=== PATIENT | male | born 1975 | race Caucasian/White ===

== ENCOUNTER 2022-10-18 09:18 | Day surgery (SDC) | payer BC ==
[2022-10-17 14:48] VITALS: BMI 25.0
[2022-10-18] MEDS ORDERED: Oxymetazoline HCl 0.05% (30 ML BOT) ONE ×2 (09:57→11:19)
[2022-10-18] MEDS ORDERED: Midazolam HCl 2 mg/2 ml Vial ONE (11:04)
[2022-10-18] MEDS ORDERED: Lidocaine 1% (PF) 30 ML VIAL ONE (11:19)
[2022-10-18] MEDS ORDERED: EPINEPHrine 1 MG/ML AMP ONE (11:19)
[2022-10-18] MEDS ORDERED: Bacitracin Zinc Ointment 30 gm TUBE ONE (11:19)
[2022-10-18] MEDS ORDERED: Fentanyl 250 MCG/5 ML VIAL ONE (11:23)
[2022-10-18] MEDS ORDERED: Ketamine 50 MG/ML (10ML VIAL) ONE (11:27)
[2022-10-18] MEDS ORDERED: PROPOFOL 200 MG/20 ML VIAL ONE (11:33)
[2022-10-18] MEDS ORDERED: Dexamethasone 20 MG/5 ML VIAL ONE (11:33)
[2022-10-18] MEDS ORDERED: Rocuronium Bromide 10 MG/ML (10ML VIAL) ONE (11:33)
[2022-10-18] MEDS ORDERED: PHENYLEPHRINE-NS 100 MCG/ML 10 ML SYRINGE ONE (11:33)
[2022-10-18] MEDS ORDERED: Ondansetron PF 4 MG/2 ML Vial ONE (11:33)
[2022-10-18] MEDS ORDERED: methylPREDNISolone Acetate 40 mg/ml Vial ONE (11:40)
[2022-10-18] MEDS ORDERED: Fentanyl 100 MCG/2 ML VIAL ONE (12:54)
[2022-10-18] MEDS ORDERED: hydrALAZINE 20 MG/ML VIAL ONE (13:24)
[2022-10-18] MEDS ORDERED: Hydrocodone-Acetamin 15 ML UDCUP ONE (13:47)
== END 2022-10-18 14:30 | disposition home or self-care (01) ==
LOC: SDC 09:18
PROVIDERS: ATTEND Otolaryngology Plastic Surgery within the Head & Neck
PROC: 0CTQXZZ Resection of Adenoids, External Approach (ICD-10-PCS; principal; 2022-10-18)
PROC: 099R8ZZ Drainage of Left Maxillary Sinus, Via Natural or Artificial Opening Endoscopic (ICD-10-PCS; principal; 2022-10-18)
PROC: 099Q8ZZ Drainage of Right Maxillary Sinus, Via Natural or Artificial Opening Endoscopic (ICD-10-PCS; principal; 2022-10-18)
PROC: 099S8ZZ Drainage of Right Frontal Sinus, Via Natural or Artificial Opening Endoscopic (ICD-10-PCS; principal; 2022-10-18)
PROC: 09SM0ZZ Reposition Nasal Septum, Open Approach (ICD-10-PCS; principal; 2022-10-18)
PROC: 09TU8ZZ Resection of Right Ethmoid Sinus, Via Natural or Artificial Opening Endoscopic (ICD-10-PCS; principal; 2022-10-18)
PROC: 0CTPXZZ Resection of Tonsils, External Approach (ICD-10-PCS; principal; 2022-10-18)
PROC: 09TV8ZZ Resection of Left Ethmoid Sinus, Via Natural or Artificial Opening Endoscopic (ICD-10-PCS; principal; 2022-10-18)
PROC: 095L0ZZ Destruction of Nasal Turbinate, Open Approach (ICD-10-PCS; principal; 2022-10-18)
PROC: 0CTNXZZ Resection of Uvula, External Approach (ICD-10-PCS; principal; 2022-10-18)
PROC: 099T8ZZ Drainage of Left Frontal Sinus, Via Natural or Artificial Opening Endoscopic (ICD-10-PCS; principal; 2022-10-18)
DX: J32.9 Chronic sinusitis, unspecified (principal); J34.2 Deviated nasal septum; J34.3 Hypertrophy of nasal turbinates; J34.89 Other specified disorders of nose and nasal sinuses; J35.03 Chronic tonsillitis and adenoiditis; K13.79 Other lesions of oral mucosa; G47.33 Obstructive sleep apnea (adult) (pediatric)
CPT/HCPCS: 88304; J0171; J0360; J1030; J1100; J2001; J2250; J2405; J2704; J3010